=== PATIENT | male | born 1935 | race American Indian/Alaskan Native ===

== ENCOUNTER 2019-10-19 08:09 | Emergency (ER) | payer MEDICARE ==
[~2019-10-19 08:09] MED LIST: FAMOTIDINE 20 MG/2 ML INJ IV ONE; diphenhydrAMINE 50 MG/ML VIAL IV ONE; methylPREDNISolone Sod Succinate 125 MG/2 ML INJ IV ONE
[2019-10-19] MEDS ORDERED: ONDANSETRON 4 MG/2 ML INJ ONE (08:31)
[2019-10-19] MEDS ORDERED: ONDANSETRON 4 MG/2 ML INJ IV ONE (08:31)
--- NOTE | 2019-10-19 08:46 | Emergency Department Report ---
ED General Adult HPI - General Chief complaint: Allergic Reaction Stated complaint: SWELLING TO TONGUE Source: patient, EMS Mode of arrival: Stretcher Limitations: No Limitations - History of Present Illness Initial comments: Patient presents to the emergency department with a chief complaint of swelling of his tongue that started last night. Patient states this morning he began to have some swelling of his throat thus the reason for him coming to the emergency department. Patient is able to swallow without difficulty. Patient states this happened to him 10 years ago after taking penicillin mixed with something else that he cannot remember. Patient is not on arm or an LUANN inhibitor. But he does take atenolol, clonidine, hydralazine and another medication for hypert ension. -: Sudden Location: mouth Severity scale (0 -10): 0 Consistency: constant Improves with: none Worsens with: none Associated Symptoms: denies other symptoms Treatments Prior to Arrival: none - Related Data Allergies Allergy/AdvReac Type Severity Reaction Status Date / Time Penicillins Allergy Angioedema Verified 10/19/19 08:09 ED Review of Systems ROS: Stated complaint: SWELLING TO TONGUE Other details as noted in HPI Constitutional: denies: chills, fever Eyes: denies: eye pain, eye discharge, vision change ENT: denies: ear pain, throat pain Respiratory: denies: cough, shortness of breath, wheezing Cardiovascular: denies: chest pain, palpitations Endocrine: no symptoms reported Gastrointestinal: denies: abdominal pain, nausea, diarrhea Genitourinary: denies: urgency, dysuria Musculoskeletal: denies: back pain, joint swelling, arthralgia Skin: denies: rash, lesions Neurological: denies: headache, weakness, paresthesias Psychiatric: denies: anxiety, depression Hematological/Lymphatic: denies: easy bleeding, easy bruising ED Past Medical Hx - Past Medical History Previous Medical History?: Yes Hx Hypertension: Yes Hx Diabetes: Yes Hx of Cancer: Yes (Prostate CA) Additional medical history: high cholesterol - Surgical History Past Surgical History?: Yes Additional Surgical History: prostate surgery 2009 - Social History Smoking Status: Former Smoker Substance Use Type: None ED Physical Exam - General Limitations: No Limitations General appearance: alert, in no apparent distress - Head Head exam: Present: atraumatic, normocephalic - Eye Eye exam: Present: normal appearance, PERRL, EOMI - ENT ENT exam: Present: mucous membranes moist, other (Patient has swelling of the tongue there is no lesions to the intraoral mucosa. There is no pooling of saliva. Patient is able to swallow without difficulty. There is no swelling to the soft tissues underneath the tongue at the floor of the mouth) - Neck Neck exam: Present: normal inspection - Respiratory Respiratory exam: Present: normal lung sounds bilaterally. Absent: respiratory distress - Cardiovascular Cardiovascular Exam: Present: regular rate, normal rhythm. Absent: systolic mur mur, diastolic murmur, rubs, gallop - GI/Abdominal GI/Abdominal exam: Present: soft, normal bowel sounds - Rectal Rectal exam: Present: deferred - Extremities Exam Extremities exam: Present: normal inspection - Back Exam Back exam: Present: normal inspection - Neurological Exam Neurological exam: Present: alert, oriented X3 - Psychiatric Psychiatric exam: Present: normal affect, normal mood - Skin Skin exam: Present: warm, dry, intact, normal color. Absent: rash ED Course Vital Signs 10/19/19 10/19/19 10/19/19 08:02 08:09 08:16 Temperature 98.4 F Pulse Rate 81 82 Respiratory 17 15 Rate Blood Pressure 183/91 183/91 O2 Sat by Pulse 94 97 97 Oximetry 10/19/19 10/19/19 10/19/19 08:27 08:30 09:00 Temperature Pulse Rate 88 83 Respiratory 15 18 16 Rate Blood Pressure 169/87 169/87 O2 Sat by Pulse 97 93 93 Oximetry 10/19/19 10/19/19 10/19/19 09:30 10:00 10:30 Temperature Pulse Rate 82 81 78 Respiratory 25 H 14 16 Rate Blood Pressure 150/83 132/78 132/78 O2 Sat by Pulse 92 91 94 Oximetry 10/19/19 10/19/19 11:00 11:30 Temperature Pulse Rate 77 77 Respiratory 12 14 Rate Blood Pressure 159/82 145/80 O2 Sat by Pulse 92 91 Oximetry ED Medical Decision Making - Medical Decision Making Patient received IV Solu-Medrol, Pepcid, Benadryl On reevaluation of the patient at 9:30 AM he complained of having some difficulty with swallowing and his tongue appeared to be larger TXA was ordered Patient was reevaluated at 11 AM and shows significant improvement Repeat examination at 11:50 AM showed that the patient's angioedema has completely resolved It was discussed with the patient that he should speak to his primary care physician about switching hypertension meds specifically clonidine which can cause angioedema Critical care attestation.: If time is entered above; I have spent that time in minutes in the direct care of this critically ill patient, excluding procedure time. ED Disposition Clinical Impression: Angioedema Disposition: DC-01 TO HOME OR SELFCARE Is pt being admited?: No Does the pt Need Aspirin: No Condition: Stable Instructions: Angioedema (ED) Additional Instructions: return if worse Please follow-up with your primary care physician and have further evaluation for substitute blood pressure medication Please discontinue clonidine which can cause angioedema Time of Disposition: 11:57
[2019-10-19] MEDS ORDERED: TRANEXAMIC ACID 1,000 MG in SODIUM CHLORIDE 0.9% 100 ML IV NR (10:00)
[2019-10-19 12:30] VITALS: BP 163/80
== END 2019-10-19 12:30 | disposition home or self-care (01) ==
LOC: ED 08:09
DX: T78.3XXA Angioneurotic edema, initial encounter (principal); I10 Essential (primary) hypertension; E11.9 Type 2 diabetes mellitus without complications; E78.00 Pure hypercholesterolemia, unspecified; Z85.46 Personal history of malignant neoplasm of prostate; Z87.891 Personal history of nicotine dependence; Z88.0 Allergy status to penicillin; X58.XXXA Exposure to other specified factors, initial encounter
CPT/HCPCS: 96365; 96375; 99284; J1200; J2405; J2930

== ENCOUNTER 2020-01-30 20:59 | Emergency (ER) | payer MEDICARE ==
[2020-01-30 21:47] LABS: Basophils % (Auto) 0.7 % (0.0-1.8); Eosinophils # (Auto) 0.1 K/mm3 (0.0-0.4); Eosinophils % (Auto) 1.4 % (0.0-4.3); Lymphocytes # (Auto) 0.3 K/mm3 (1.2-5.4); Lymphocytes % (Auto) 6.6 % (13.4-35.0); Mean Corpuscular HGB Conc 33 % (32-34); Mean Corpuscular Volume 97 fl (84-94); Monocytes # (Auto) 0.7 K/mm3 (0.0-0.8); Monocytes % (Auto) 13.7 % (0.0-7.3); Platelet Count 106 K/mm3 (140-440); Red Blood Count 4.32 M/mm3 (3.65-5.03); Red Cell Distribution Width 13.2 % (13.2-15.2)
[2020-01-30 21:57] LABS: Albumin 4.3 g/dL (3.9-5); Calcium 9.7 mg/dL (8.4-10.2)
[2020-01-30] MEDS ORDERED: ONDANSETRON 4 MG/2 ML INJ IV ONE (22:26)
[2020-01-30] MEDS ORDERED: MORPHINE 4 MG/1 ML INJ IV ONE (22:27)
--- NOTE | 2020-01-30 22:33 | Emergency Department Report ---
ED General Adult HPI - General Chief complaint: Abdominal Pain Stated complaint: ABDOMINAL AND BACK PAIN Time Seen by Provider: 01/30/20 21:41 Source: patient, EMS Mode of arrival: Stretcher Limitations: No Limitations - History of Present Illness Initial comments: The patient presents to the emergency department the chief complaint of abdominal pain located on the lower right aspect of his abdomen that started yesterday. Patient describes the pain is sharp in nature and denies any nausea vomiting. Patient also denies any radiation of the abdominal pain. Patient denies chest pain, shortness breath, or headache. The patient also complains of right flank pain. -: days(s) (1) Location: abdomen Radiation: non-radiation Severity scale (0 -10): 6 Quality: sharp Consistency: constant Improves with: none Worsens with: none Associated Symptoms: denies other symptoms Treatments Prior to Arrival: none - Related Data Previous Rx's Medication Instructions Recorded Last Taken Type HYDROcodone/APAP 5-325 [[place] 1 each PO Q6HR PRN #12 tablet 01/31/20 Unknown Rx 5/325] Ondansetron [Zofran Odt] 4 mg PO Q4HR PRN #20 tab.rapdis 01/31/20 Unknown Rx Allergies Allergy/AdvReac Type Severity Reaction Status Date / Time Penicillins Allergy Angioedema Verified 10/19/19 08:09 ED Review of Systems ROS: Stated complaint: ABDOMINAL AND BACK PAIN Other details as noted in HPI Constitutional: denies: chills, fever Eyes: denies: eye pain, eye discharge, vision change ENT: denies: ear pain, throat pain Respiratory: denies: cough, shortness of breath, wheezing Cardiovascular: denies: chest pain, palpitations Endocrine: no symptoms reported Gastrointestinal: abdominal pain. denies: nausea, diarrhea Genitourinary: denies: urgency, dysuria Musculoskeletal: denies: back pain, joint swelling, arthralgia Skin: denies: rash, lesions Neurological: denies: headache, weakness, paresthesias Psychiatric: denies: anxiety, depression Hematological/Lymphatic: denies: easy bleeding, easy bruising ED Past Medical Hx - Past Medical History Previous Medical History?: Yes Hx Hypertension: Yes Hx Diabetes: Yes Hx Renal Disease: Yes Additional medical history: high cholesterol - Surgical History Past Surgical History?: Yes Additional Surgical History: prostate surgery 2009 - Social History Smoking Status: Never Smoker Substance Use Type: None - Medications Home Medications: Home Medications Medication Instructions Recorded Confirmed Last Taken Type HYDROcodone/APAP 5-325 [[place] 1 each PO Q6HR PRN #12 tablet 01/31/20 Unknown Rx 5/325] Ondansetron [Zofran Odt] 4 mg PO Q4HR PRN #20 tab.rapdis 01/31/20 Unknown Rx ED Physical Exam - General Limitations: No Limitations General appearance: alert, in no apparent distress - Head Head exam: Present: atraumatic, normocephalic - Eye Eye exam: Present: normal appearance, PERRL, EOMI - ENT ENT exam: Present: mucous membranes moist - Neck Neck exam: Present: normal inspection - Respiratory Respiratory exam: Present: normal lung sounds bilaterally. Absent: respiratory distress - Cardiovascular Cardiovascular Exam: Present: regular rate, normal rhythm. Absent: systolic murmur, diastolic murmur, rubs, gallop - GI/Abdominal GI/Abdominal exam: Present: soft, tenderness (ttp rlq), normal bowel sounds. Absent: distended - Rectal Rectal exam: Present: deferred - Extremities Exam Extremities exam: Present: normal inspection - Back Exam Back exam: Present: normal inspection - Neurological Exam Neurological exam: Present: alert, oriented X3, CN II-XII intact. Absent: motor sensory deficit - Psychiatric Psychiatric exam: Present: normal affect, normal mood - Skin Skin exam: Present: warm, dry, intact, normal color. Absent: rash ED Course Vital Signs 01/30/20 01/30/20 21:12 21:45 Temperature 97.5 F L Pulse Rate 72 Respiratory 18 19 Rate Blood Pressure 208/88 O2 Sat by Pulse 96 97 Oximetry ED Medical Decision Making - Lab Data Result diagrams: 01/30/20 21:20 01/30/20 21:20 Lab Results 01/30/20 01/30/20 01/30/20 Range/Units 21:20 21:20 22:34 WBC 5.0 (4.5-11.0) K/mm3 RBC 4.32 (3.65-5.03) M/mm3 Hgb 14.0 (11.8-15.2) gm/dl Hct 42.0 (35.5-45.6) % MCV 97 H (84-94) fl MCH 32 (28-32) pg MCHC 33 (32-34) % RDW 13.2 (13.2-15.2) % Plt Count 106 L (140-440) K/mm3 Lymph % (Auto) 6.6 L (13.4-35.0) % [place] % (Auto) 13.7 H (0.0-7.3) % Eos % (Auto) 1.4 (0.0-4.3) % Baso % (Auto) 0.7 (0.0-1.8) % Lymph # 0.3 L (1.2-5.4) K/mm3 [place] # 0.7 (0.0-0.8) K/mm3 Eos # 0.1 (0.0-0.4) K/mm3 Baso # 0.0 (0.0-0.1) K/mm3 Seg Neutrophils % 77.6 H (40.0-70.0) % Seg Neutrophils # 3.9 (1.8-7.7) K/mm3 PT 13.5 (12.2-14.9) Sec. INR 1.02 (0.87-1.13) APTT 31.9 (24.2-36.6) Sec. Sodium 139 (137-145) mmol/L Potassium 3.7 (3.6-5.0) mmol/L Chloride 98.2 (98-107) mmol/L Carbon Dioxide 27 (22-30) mmol/L Anion Gap 18 mmol/L BUN 37 H (9-20) mg/dL Creatinine 1.8 H (0.8-1.3) mg/dL Estimated GFR 44 ml/min BUN/Creatinine Ratio 21 % Glucose 159 H (75-100) mg/dL Calcium 9.7 (8.4-10.2) mg/dL Total Bilirubin 1.40 H (0.1-1.2) mg/dL AST 15 (5-40) units/L ALT 12 (7-56) units/L Alkaline Phosphatase 57 (35-129) units/L Total Protein 7.4 (6.3-8.2) g/dL Albumin 4.3 (3.9-5) g/dL Albumin/Globulin Ratio 1.4 % Lipase (13-60) units/L Urine Color (Yellow) Urine Turbidity (Clear) Urine pH (5.0-7.0) Ur Specific [place] (1.003-1.030) Urine Protein (Negative) mg/dL Urine Glucose (UA) (Negative) mg/dL Urine Ketones (Negative) mg/dL Urine Blood (Negative) Urine Nitrite (Negative) Urine Bilirubin (Negative) Urine Urobilinogen (<2.0) mg/dL Ur Leukocyte Esterase (Negative) Urine WBC (Auto) (0.0-6.0) /HPF Urine RBC (Auto) (0.0-6.0) /HPF Urine Mucus /HPF 01/30/20 01/31/20 Range/Units 22:34 00:42 WBC (4.5-11.0) K/mm3 RBC (3.65-5.03) M/mm3 Hgb (11.8-15.2) gm/dl Hct (35.5-45.6) % MCV (84-94) fl MCH (28-32) pg MCHC (32-34) % RDW (13.2-15.2) % Plt Count (140-440) K/mm3 Lymph % (Auto) (13.4-35.0) % [place] % (Auto) (0.0-7.3) % Eos % (Auto) (0.0-4.3) % Baso % (Auto) (0.0-1.8) % Lymph # (1.2-5.4) K/mm3 [place] # (0.0-0.8) K/mm3 Eos # (0.0-0.4) K/mm3 Baso # (0.0-0.1) K/mm3 Seg Neutrophils % (40.0-70.0) % Seg Neutrophils # (1.8-7.7) K/mm3 PT (12.2-14.9) Sec. INR (0.87-1.13) APTT (24.2-36.6) Sec. Sodium (137-145) mmol/L Potassium (3.6-5.0) mmol/L Chloride (98-107) mmol/L Carbon Dioxide (22-30) mmol/L Anion Gap mmol/L BUN (9-20) mg/dL Creatinine (0.8-1.3) mg/dL Estimated GFR ml/min BUN/Creatinine Ratio % Glucose (75-100) mg/dL Calcium (8.4-10.2) mg/dL Total Bilirubin (0.1-1.2) mg/dL AST (5-40) units/L ALT (7-56) units/L Alkaline Phosphatase (35-129) units/L Total Protein (6.3-8.2) g/dL Albumin (3.9-5) g/dL Albumin/Globulin Ratio % Lipase 36 (13-60) units/L Urine Color Yellow (Yellow) Urine Turbidity Clear (Clear) Urine pH 5.0 (5.0-7.0) Ur Specific [place] 1.015 (1.003-1.030) Urine Protein <15 mg/dl (Negative) mg/dL Urine Glucose (UA) Neg (Negative) mg/dL Urine Ketones Neg (Negative) mg/dL Urine Blood Neg (Negative) Urine Nitrite Neg (Negative) Urine Bilirubin Neg (Negative) Urine Urobilinogen < 2.0 (<2.0) mg/dL Ur Leukocyte Esterase Neg (Negative) Urine WBC (Auto) < 1.0 (0.0-6.0) /HPF Urine RBC (Auto) 2.0 (0.0-6.0) /HPF Urine Mucus Few /HPF - Radiology Data Radiology results: report reviewed Referring Physician: KIRTI VERGARA Patient Name: ADONAY MEHTA Date of : 1935 Sex: Male Report Date: 2020-01-31 Report Status: [place] [address] Cat Scan Report Signed Patient: ADONAY MEHTA MR#: [id number] : 1935 Acct:[id number] Age/Sex: 84 / M ADM Date: 01/30/20 Loc: ED Attending Dr: Ordering Physician: KIRTI VERGARA MD Date of Service: 01/31/20 Procedure(s): CT abdomen pelvis w con Accession Number(s): [id number] cc: KIRTI VERGARA MD CT abdomen pelvis w con INDICATION: renal mass. TECHNIQUE: All CT scans at this location are performed using the following dose modulation technique: Automated exposure control. CONTRAST: Omnipaque 300, 75 cc IV injection. COMPARISON: Noncontrast study previous day. CT ABDOMEN: Evaluation of the parenchymal organs demonstrates a lesion arising from the posterior aspect of the right kidney measuring 7.7 cm. This is mildly complex, contains calcification and greater in density than simple fluid but does not demonstrate significant enhancement. A benign-appearing cyst is again seen at the left kidney. The remaining parenchymal organs are unremarkable. Negative for abdominal mass, fluid or inflammation. A small fat-containing umbilical hernia is present. Calcified gallstones are noted. CT PELVIS: Negative for pelvic mass, fluid or inflammation. Radioactive prostate seeds are present. IMPRESSION: 1. Complex lesion right kidney does not demonstrate significant enhancement. 2. Calcified gallstones. Signer Name: Catrachito Mosqueda MD Signed: 01/31/2020 1:06 AM Workstation Name: [id number] Transcribed By: ES Dictated By: Catrachito Mosqueda MD Electronically Authenticated By: Catrachito Mosqueda MD Signed Date/Time: 01/31/20105 DD/ 3 TD/TT: - Medical Decision Making Discussed results with patient and need to follow-up with urology for evaluation of his renal mass which the patient states he understands Critical care attestation.: If time is entered above; I have spent that time in minutes in the direct care of this critically ill patient, excluding procedure time. ED Disposition Clinical Impression: Renal mass, right Disposition: DC-01 TO HOME OR SELFCARE Is pt being admited?: No Does the pt Need Aspirin: No Condition: Stable Instructions: Flank Pain (ED) Additional Instructions: return if worse Please follow up with the provided physicians for further evaluation of your renal mass Referrals: YOVANA SMITH MD [Primary Care Provider] - 3-5 Days MAKAYLA TARIQ MD [Staff Physician] - 3-5 Days Time of Disposition: 01:37
--- NOTE | 2020-01-30 23:02 | Cat Scan Report ---
CT abdomen pelvis wo con INDICATION: RLQ ab pain. TECHNIQUE: All CT scans at this location are performed using the following dose modulation technique: Automated exposure control. CONTRAST: None. COMPARISON: None available. CT ABDOMEN: Evaluation of the parenchymal organs demonstrates a 2.8 cm right renal cyst. A 7.7 cm les ion arising from the posterior aspect of the right kidney is not a simple cyst. There is a small amou nt of calcification seen along the lateral aspect.. Negative for abdominal mass, fluid or inflammation. The bowel is not dilated or thickened. Evaluation is limited by motion artifact. CT PELVIS: The appendix is normal. Negative for pelvic mass or fluid collection. Colonic stool is mod erate. Radioactive prostate seeds are present. IMPRESSION: 1. Indeterminate right renal mass. 2. Moderate colonic stool. 3. Evaluation limited by significant motion artifact. Signer Name: Catrachito Mosqueda MD Signed: 01/30/2020 10:58 PM Workstation Name: [id number]
[2020-01-30 23:41] LABS: INR 1.02 (0.87-1.13)
[2020-01-30 23:42] LABS: Partial Thromboplastin Time 31.9 Sec. (24.2-36.6)
[2020-01-31] MEDS ORDERED: MORPHINE 2 MG/1 ML INJ IV ONE (00:28)
[2020-01-31] MEDS ORDERED: MORPHINE 4 MG/1 ML INJ IM ONE (00:53)
[2020-01-31 01:03] LABS: Bilirubin,Urine NEG (Negative); Blood,Urine NEG (Negative); Color,Urine Yellow (Yellow); Mucus,Urine FEW /HPF; Protein,Urine <15 mg/dL mg/dL (Negative); Urobilinogen,Urine < 2.0 mg/dL (<2.0); WBC,Urine < 1.0 /HPF (0.0-6.0)
--- NOTE | 2020-01-31 01:11 | Cat Scan Report ---
CT abdomen pelvis w con INDICATION: renal mass. TECHNIQUE: All CT scans at this location are performed using the following dose modulation technique: Automated exposure control. CONTRAST: Omnipaque 300, 75 cc IV injection. COMPARISON: Noncontrast study previous day. CT ABDOMEN: Evaluation of the parenchymal organs demonstrates a lesion arising from the posterior asp ect of the right kidney measuring 7.7 cm. This is mildly complex, contains calcification and greater in density than simple fluid but does not demonstrate significant enhancement. A benign-appearing cys t is again seen at the left kidney. The remaining parenchymal organs are unremarkable. Negative for abdominal mass, fluid or inflammation. A small fat-containing umbilical hernia is presen t. Calcified gallstones are noted. CT PELVIS: Negative for pelvic mass, fluid or inflammation. Radioactive prostate seeds are present. IMPRESSION: 1. Complex lesion right kidney does not demonstrate significant enhancement. 2. Calcified gallstones. Signer Name: Catrachito Mosqueda MD Signed: 01/31/2020 1:06 AM Workstation Name: [id number]
[2020-01-31 01:50] VITALS: BP 158/76
== END 2020-01-31 01:50 | disposition home or self-care (01) ==
LOC: ED 20:59
DX: N28.89 Other specified disorders of kidney and ureter (principal); I10 Essential (primary) hypertension; E11.9 Type 2 diabetes mellitus without complications; E78.00 Pure hypercholesterolemia, unspecified; Z98.890 Other specified postprocedural states; Z88.0 Allergy status to penicillin
CPT/HCPCS: 36415; 74176; 74177; 80053; 81001; 83690; 85025; 85610; 85730; 96372; 96374; 96375; 99284; J2270; J2405; Q9967

== ENCOUNTER 2021-09-27 08:20 | Emergency (ER) | payer MEDICARE ==
--- NOTE | 2021-09-27 11:05 | Emergency Department Report ---
ED Lower Extremity HPI - General Chief Complaint: Extremity Problem,Nontraumatic Stated Complaint: FOOT PAIN/GOUT FLARE UP Time Seen by Provider: 09/27/21 10:38 Source: patient, EMS Mode of arrival: Stretcher Limitations: No Limitations - History of Present Illness MD Complaint: foot injury -: Gradual Injury: Foot: Left (Left hallux at the first metatarsophalangeal joint) Place: home Severity: mild, moderate Improves With: nothing Worsens With: weight bearing, movement, palpation Associated Symptoms: swelling, able to partially bear weight - Related Data Previous Rx's Medication Instructions Recorded Last Taken Type Ondansetron [Zofran ODT TAB] 4 mg PO Q4HR PRN #20 tab.rapdis 01/31/20 Unknown Rx HYDROcodone/APAP 5-325 [[place] 1 each PO Q6HR PRN #12 tablet 02/21/20 Unknown Rx 5-325 mg TAB] Losartan [Cozaar] 50 mg PO QDAY #30 tablet 02/21/20 Unknown Rx Ascorbic Acid [Vitamin C] 500 mg PO BID #10 tablet 04/08/20 Unknown Rx Dexamethasone 6 mg PO DAILY #4 tablet 04/08/20 Unknown Rx carvediloL [Coreg] 6.25 mg PO BID #60 tablet 04/08/20 Unknown Rx levoFLOXacin [Levaquin TAB] 500 mg PO Q48H #4 tablet 04/08/20 Unknown Rx Colchicine 0.6 mg PO Q2HR #20 09/27/21 Unknown Rx Indomethacin [Indocin] 25 mg PO Q8H #14 cap 09/27/21 Unknown Rx Allergies Allergy/AdvReac Type Severity Reaction Status Date / Time Penicillins Allergy Angioedema Verified 10/19/19 08:09 ED Review of Systems ROS: Stated complaint: FOOT PAIN/GOUT FLARE UP Other details as noted in HPI Comment: All other systems reviewed and negative ED Past Medical Hx - Past Medical History Hx Hypertension: Yes Hx Diabetes: Yes Hx Deep Vein Thrombosis: (unknown) Hx Pulmonary Embolism: No Hx Liver Disease: No Hx Renal Disease: No Hx Sickle Cell Disease: No Hx Arthritis: No Hx Seizures: No Hx Kidney Stones: No Hx Asthma: No Hx COPD: No Hx Tuberculosis: No Hx Dementia: No Hx HIV: No Additional medical history: high cholesterol - Surgical History Hx Pacemaker: No Hx Internal Defibrillator: No Additional Surgical History: prostate surgery 2009 - Social History Smoking Status: Never Smoker - Medications Home Medications: Home Medications Medication Instructions Recorded Confirmed Last Taken Type Ondansetron [Zofran ODT TAB] 4 mg PO Q4HR PRN #20 tab.rapdis 01/31/20 04/03/20 Unknown Rx HYDROcodone/APAP 5-325 [[place] 1 each PO Q6HR PRN #12 tablet 02/21/20 04/03/20 Unknown Rx 5-325 mg TAB] Losartan [Cozaar] 50 mg PO QDAY #30 tablet 02/21/20 04/03/20 Unknown Rx Ascorbic Acid [Vitamin C] 500 mg PO BID #10 tablet 04/08/20 Unknown Rx Dexamethasone 6 mg PO DAILY #4 tablet 04/08/20 Unknown Rx carvediloL [Coreg] 6.25 mg PO BID #60 tablet 04/08/20 Unknown Rx levoFLOXacin [Levaquin TAB] 500 mg PO Q48H #4 tablet 04/08/20 Unknown Rx Colchicine 0.6 mg PO Q2HR #20 09/27/21 Unknown Rx Indomethacin [Indocin] 25 mg PO Q8H #14 cap 09/27/21 Unknown Rx ED Physical Exam - General Limitations: No Limitations General appearance: alert, in no apparent distress - Head Head exam: Present: atraumatic, normocephalic - Eye Eye exam: Present: normal appearance - ENT ENT exam: Present: mucous membranes moist - Neck Neck exam: Present: normal inspection - Respiratory Respiratory exam: Present: normal lung sounds bilaterally. Absent: respiratory distress - Cardiovascular Cardiovascular Exam: Present: regular rate, normal rhythm. Absent: systolic murmur, diastolic murmur, rubs, gallop - GI/Abdominal GI/Abdominal exam: Present: soft, normal bowel sounds - Rectal Rectal exam: Present: deferred - Extremities Exam Extremities exam: Present: normal inspection, tenderness (Left metatarsophalangeal joint #1. Symptom is warmth mild redness is present. Pain with with manipulation of the first phalanges. No broken skin no evidence of any cellulitis. No lymphangitis present. Pulses 2+ significant onychomycosis of all present to all toenails), normal capillary refill - Back Exam Back exam: Present: normal inspection - Neurological Exam Neurological exam: Present: alert, oriented X3 - Psychiatric Psychiatric exam: Present: normal affect, normal mood - Skin Skin exam: Present: warm, dry, intact, normal color. Absent: rash ED Course Vital Signs 09/27/21 08:24 Pulse Rate 84 Blood Pressure 148/82 [Left] O2 Sat by Pulse 98 Oximetry Critical care attestation.: If time is entered above; I have spent that time in minutes in the direct care of this critically ill patient, excluding procedure time. ED Disposition Clinical Impression: [place] Disposition: HOME / SELF CARE / HOMELESS Is pt being admited?: No Does the pt Need Aspirin: No Condition: Stable Instructions: Low-Purine Eating Plan Prescriptions: Colchicine 0.6 mg PO Q2HR #20 Indomethacin [Indocin] 25 mg PO Q8H #14 cap Referrals: [facility] [Provider Group] - 3-5 Days
[2021-09-27 11:13] VITALS: BP 140/80
[2021-09-27] MEDS ORDERED: ACETAMINOPHEN 325 MG TAB PO ONE (12:10)
== END 2021-09-27 11:11 | disposition home or self-care (01) ==
LOC: ED 08:20
DX: M10.9 Gout, unspecified (principal); Z88.0 Allergy status to penicillin; I10 Essential (primary) hypertension; E11.9 Type 2 diabetes mellitus without complications
CPT/HCPCS: 99283